=== PATIENT | female | born 1935 | race Caucasian/White ===

== ENCOUNTER → 2017-05-12 | Outpatient (CLI) | payer OTHER, BC ==
[~2017-05-12] VITALS: Ht 160 cm; Wt 66.2 kg
[~2017-05-12] MED LIST: ABILIFY 5 MG TAB5 M1 PO; ACETAMINOPHEN325 M1; ACETAMINOPHEN325 M1 PO; ACIDOPHILUS1 EAC3; ACIDOPHILUS1 EAC3 PO; ADULT LOW DOSE81 MG PO; ADVAIR 100-501 EACH INH; ADVAIR 500-501 EACH; ADVAIR 500-501 EACH IH; ADVAIR 500-501 EACH INH; ADVAIR 500-501 EACH PO; ADVAIR HFA115 MCG/21 INH; ADVAIRDISKUS; ALBUTEROL INH; ALBUTEROL2.5 MG/0.1 IH; ALBUTEROL2.5 MG/31; ALBUTEROL2.5 MG/32 IH; ALDACTONE50 MG PO; AMBEREN; AMBIEN 5 MG TABL5 M1 PO; AMOXICILLIN 50500 M1 PO; AMOXICILLIN 50500 MG; ARTIFICIAL TEAR15 M1 OPHTHALMIC; ASPERCREME 1141.7 GM TOP; ASPERCREME 1141.7 GM TP; ASPIRIN EC325 M1 PO; ASPIRIN EC81 M1 PO; ASPIRIN325; ASPIRIN81 M2 PO; ATIVAN0.5 MG PO; AUGMENTIN 875875 MG PO; AZITHROMYCIN 2250 MG PO; BENADRYL ALLE12.5 MG PO; BENADRYL ALLERG25 MG PO; BENADRYL25 MG PO; BICARSIM80 MG; BICARSIM80 MG PO; BISAC-EVAC10 MG RECTAL; BISACODYL SUPP10 MG; BUDEPRION SR100 MG PO; BUDEPRION SR150 MG PO; BUPROPION HCL100 MG PO; BUPROPION XL150 MG PO; CALCIUM; CALCIUM 500 +1 EAC5; CALCIUM 500 +1 EAC6; CALCIUM 600 +1 EAC1 PO; CALCIUM 600 +1 EAC9 PO; CARVEDILOL3.125 MG PO; CARVEDILOL6.25 MG PO; CEFTIN 250 MG250 MG PO; CELEXA10 MG PO; CEPHALEXIN 500500 M3 PO; CIPROFLOXACIN500 M1 PO; CIPROFLOXACIN500 M3; CITRUCEL500 MG PO; COLACE 100 MG100 MG PO; COLACE100 MG; COLACE100 MG PO; COREG CR20 MG PO; COREG PO; COUMADIN; COUMADIN 10MG T10 M1; COUMADIN 10MG T10 M1 PO; COUMADIN 2 MG TA2 M1 PO; COUMADIN 4 MG TA4 M1 PO; COUMADIN PO; COUMADIN7.5 MG; DESYREL; DESYREL50 MG PO; DIOVAN160 MG; DIOVAN160 MG PO; DUCOLAX PO; DUONEB 2.5-0.5 M3 ML INH; EFFEXOR XR150 MG PO; EFFEXOR100 MG; EFFEXOR100 MG PO; ENOXAPARIN80 MG/0.8 SC; EYE DROP15 ML OPHTHALMIC; FERRO-TIME325 MG PO; FERROUS GLUCON325 M4; FERROUS SULFAT325 M1; FERROUS SULFAT325 M1 PO; FLEET ENEMA118 ML; FLONASE 0.05%50 MCG NASAL; FOSAMAX 70 MG T70 M1; FOSAMAX 70 MG T70 M1 PO; FOSAMAX 70 MG T70 MG PO; FUROSEMIDE 20 M20 M1 PO; FUROSEMIDE 40 M40 M1 PO; GLUCAGEN1 M2 SUBQ; GLYCOLAX POWDER17 G1 PO; GLYCOLAX17 GM; GLYCOLAX255 GM PO; IBUPROFEN 600600 M1 PO; IMDUR 30 MG TAB30 M1; IMDUR 30 MG TAB30 M1 PO; IMODIUM ADVANC1 EAC1; IMODIUM ADVANC1 EAC1 PO; IRON325 PO; ISOSORBIDE DINI30 MG; JANTOVEN7.5 MG PO; K-DUR 20 MEQ T20 MEQ; K-DUR 20 MEQ T20 MEQ PO; LASIX 20 MG TAB20 MG; LASIX 20 MG TAB20 MG PO; LASIX 40 MG TAB40 M1; LASIX 40 MG TAB40 M1 PO; LASIX 40 MG TAB40 M2 PO; LEVAQUIN 250 M250 MG PO; LEVOTHROID PO; LEVOTHYROXINE0.05 MG; LEVOXYL75 MCG PO; LOPERAMIDE 2 MG2 M1; LOPERAMIDE 2 MG2 M1 PO; LOVASTAT20; LOVASTAT20 PO; LOVASTAT40 PO; LOVASTATIN PO; LOW DOSE ASPIRI81 M1; MELATONIN3 MG PO; METAMUCIL0.52 GM PO; MEVACOR40 MG PO; MIRALAX255 GM; MIRALAX255 GM PO; MOM; MOM PO; MONTELUKAST SOD10 MG PO; MUCINEX TA600 MG/TA1 PO; MUCINEX TA600 MG/TAB; MUCINEX600 MG PO; MULTIVITAMINS; MULTIVITAMINS PO; NEPHROCAPS SOFT1 CAP; NEPHROCAPS SOFT1 CAP PO; NEXIUM40 MG; NITROQUICK0.4 MG SL; NITROSTAT0.4 M1 SL; NITROSTAT0.4 MG SL; NORVASC 5 MG TAB5 MG; NORVASC 5 MG TAB5 MG PO; NORVASC10 MG PO; OCEAN45 ML NASAL; OCTREOTIDE100 MCG/3 SC; OMEPRAZOLE PO; OMEPRAZOLE20 M2 PO; OMEPRAZOLE20 MG; OMEPRAZOLE40 MG PO; OPTIVE EYE DROP30 ML INTRAOCULR; OS-CAL 500+D C1 EACH PO; OXCARBAZEPINE600 MG; OXYBUTYNIN 5 MG5 M1 PO; OXYGEN 2L/NC; OXYGEN PRN; PHENERGAN 25 MG25 M1 PO; POTASSIUM20; POTASSIUM20 PO; PREDNISONE 10 M10 MG PO; PRILOSEC 20 MG20 MG; PRILOSEC 20 MG20 MG PO; PROAIR HFA8.5 GM; PROAIR HFA8.5 GM IH; PROAIR HFA8.5 GM INH; PROTONIX40 M2 PO; PROVENTIL; PROVENTIL HFA6.7 G1 IH; PROVENTIL HFA6.7 G1 INH; PROVENTIL INH; REFRESH5 ML INTRAOCULR; RENAL SOFTGEL1 MG; ROBITUSSIN COU118 M1 PO; SALINE NASAL SPRAY; SEE COMMENTS; SENNA S TABLET1 EACH PO; SENNA SYRU8.8 MG/5 M PO; SEROQUEL 25 MG25 MG PO; SIMETHICON CHEW80 M1 PO; SLOW MAG 64 MG; SLOW-MAG64 MG PO; SPIRIVA; SPIRIVA IH; SPIRIVA INH; SPIRONOLACTONE50 MG PO; STERILE SALINE126 ML NASAL; SYNTHROID50 MCG; SYNTHROID50 MCG PO; SYNTHROID75 MCG PO; TESSALON PERLE100 MG; TESSALON PERLE100 MG PO; TIROSINT75 MCG PO; TOPAMAX25 M1 PO; TRAMADOL 50 MG50 MG; TRAMADOL 50 MG50 MG PO; TRAZODONE HCL50 MG PO; TRILEPTAL 300300 MG; TRILEPTAL 300300 MG PO; TRILEPTAL600 MG; TRILEPTAL600 MG PO; ULTRAM 50MG TAB50 MG; ULTRAM 50MG TAB50 MG PO; VALIUM2 MG; VISINE15 ML; VITAMIN C + RO500 MG PO; VITAMIN C120 GM; VITAMIN D1000 UNI1 PO; VITAMINC500 PO; WELLBUTRIN 100100 MG PO; WELLBUTRIN SR150 MG PO; WELLBUTRIN XL150 M1; WELLBUTRIN XL150 M1 PO; XENADERM OINTME30 GM; XENADERM OINTME30 GM TOP; XENADERM OINTME30 GM TP; XOPENEX0.63 MG/3 IH; ZINC CHELATE50 MG; ZPAK PO; [UNRECOGNIZED DRUG - OTHER] TOP
[2017-05-12 14:21] VITALS: BP 130/71
== END ==
LOC: SEN 12:12
DX: Z01.818 Encounter for other preprocedural examination (principal); N39.0 Urinary tract infection, site not specified; H26.8 Other specified cataract; L57.0 Actinic keratosis; J44.9 Chronic obstructive pulmonary disease, unspecified; I13.0 Hypertensive heart and chronic kidney disease with heart failure and stage 1 through stage 4 chronic kidney disease, or unspecified chronic kidney disease; I50.30 Unspecified diastolic (congestive) heart failure; N18.3 Chronic kidney disease, stage 3 (moderate); G47.33 Obstructive sleep apnea (adult) (pediatric); E03.9 Hypothyroidism, unspecified; F32.9 Major depressive disorder, single episode, unspecified; F41.9 Anxiety disorder, unspecified; I48.91 Unspecified atrial fibrillation; Z98.890 Other specified postprocedural states

== ENCOUNTER 2018-02-17 15:37 | Emergency (ER) | payer OTHER, BC ==
[~2018-02-17] VITALS: Ht 160 cm; Wt 71.2 kg
[2018-02-17] MEDS ORDERED: TRIPLE ANTIBI28.4 G2 TOP (17:21)
[2018-02-17 17:30] VITALS: BP 131/54
== END 2018-02-17 17:30 | disposition home or self-care (01) ==
LOC: ER 15:37
DX: S51.811A Laceration without foreign body of right forearm, initial encounter (principal); S00.03XA Contusion of scalp, initial encounter; G25.81 Restless legs syndrome; I48.91 Unspecified atrial fibrillation; J44.9 Chronic obstructive pulmonary disease, unspecified; I13.0 Hypertensive heart and chronic kidney disease with heart failure and stage 1 through stage 4 chronic kidney disease, or unspecified chronic kidney disease; I50.30 Unspecified diastolic (congestive) heart failure; N18.3 Chronic kidney disease, stage 3 (moderate); G47.30 Sleep apnea, unspecified; E03.9 Hypothyroidism, unspecified; F32.9 Major depressive disorder, single episode, unspecified; F41.9 Anxiety disorder, unspecified; Z90.12 Acquired absence of left breast and nipple; Z85.3 Personal history of malignant neoplasm of breast; Z86.2 Personal history of diseases of the blood and blood-forming organs and certain disorders involving the immune mechanism; Z87.891 Personal history of nicotine dependence; Z88.5 Allergy status to narcotic agent; Z88.8 Allergy status to other drugs, medicaments and biological substances; W18.39XA Other fall on same level, initial encounter; Y92.89 Other specified places as the place of occurrence of the external cause; Y93.89 Activity, other specified; Y99.8 Other external cause status

== ENCOUNTER → 2018-05-02 | Outpatient (CLI) | payer OTHER, BC ==
[~2018-05-02] MED LIST changes: +TRIPLE ANTIBI28.4 G2 TOP
== END ==
LOC: RAD 09:53
DX: I51.7 Cardiomegaly (principal); R09.89 Other specified symptoms and signs involving the circulatory and respiratory systems; Z98.890 Other specified postprocedural states

== ENCOUNTER → 2018-05-20 | Outpatient (CLI) | payer OTHER, BC ==
--- NOTE | 2018-05-21 21:19 | SLE ---
[facility] [place] [address] [address] POLYSOMNOGRAPHY STUDY Name: ROSEMARIE LANGFORD Room #: [facility]#: [id number] Admission: 05/20/18 ������������������ Attend Phys: Vinicius Pedroza MD Discharge: ������������������ Date of : 35 Report #: [id number] THIS REPORT FOR: //name// CC: Vinicius Barraza Raiza Zhang Layton MD DATE OF SERVICE: 05/20/2018 ATTENDING PHYSICIAN: Zhang Layton MD INDICATIONS: The patient is 83 years old who weighs 162 pounds and 62 inches tall with a BMI of 29.6. The patient's [place] score was not available. The patient underwent diagnostic sleep study at [facility]. DESCRIPTION: During the night study, the patient spent 407 minutes in bed and slept for 284 minutes with a low sleep efficiency of 70%. Sleep latency was prolonged at 110 minutes with a REM latency, which was absent due to lack of REM sleep. Overall, sleep architecture showed increased stage 1 and stage 2 sleep, absent N3 and REM sleep. During the night study, the patient had 2 apneas which were central. No obstructive or mixed apneas and 67 hypopneas. The patient's apnea-hypopnea index was 14.6 per hour. REM sleep was not observed. The patient's supine AHI was 14.6 per hour as well. EKG monitoring revealed average heart rate of 74 beats per minute. PVCs were observed, but no sustained arrhythmias observed. Maximum heart rate was 85 beats per minute. PLMS were seen at an index of 89 per hour and 16.9 per hour caused EEG arousals. Nocturnal oximetry study revealed average oxygen saturation of 90% with a lowest of 78%. 145 minutes were spent at an oxygen saturation of less than 89%. The patient did meet the criteria for CPAP initiation, but it was late in the night. As a result, CPAP could not be initiated. IMPRESSION: 1. Mild sleep apnea-hypopnea syndrome at an AHI of 14.6 per hour. Absence of REM sleep can underestimate the severity of sleep apnea. 2. Moderate nocturnal hypoxia secondary to combination of obstructive sleep apnea and suspected obesity hypoventilation syndrome. 3. Severe periodic limb movements during sleep. 4. Reduced sleep efficiency resulting from sleep onset and sleep maintenance insomnia. [facility] [address] [place] [address] POLYSOMNOGRAPHY STUDY Name: PRIMITIVOROSEMARIE M Room #: [facility]#: [id number] Admission: 05/20/18 ������������������ Attend Phys: Vinicius Pedroza MD Discharge: ������������������ Date of : 35 Report #: [id number] RECOMMENDATIONS: 1. If the patient is clinically symptomatic or has co-morbid conditions, then she should be treated with either oral appliance or a trial of CPAP titration. 2. Weight loss was strongly advised. 3. Avoid AUTOMOTIVE INSTRUCTOR depressants. 4. Cautioned regarding driving until the patient's hypersomnia is resolved with the above recommendations. 6. PLMS should also be further evaluated for symptoms of restless legs during the day and if present, can be treated with dopaminergic agonist agents. 7. The patient's insomnia should also be further evaluated and treated according to the etiology. 8. The patient does use home oxygen at nighttime. However, the study was performed on room air. If the patient does not undergo CPAP titration, then she should continue to use oxygen at night. ��������������������������������������������� <ELECTRONICALLY SIGNED> ���������������������������������������� By: Vinicius Pedroza MD ��������������������������������������������� 05/21/189 180 14 Vinicius Pedroza MD /nt
== END ==
LOC: SLEEPLAB 10:10
DX: G47.33 Obstructive sleep apnea (adult) (pediatric) (principal); G47.34 Idiopathic sleep related nonobstructive alveolar hypoventilation

== ENCOUNTER → 2018-06-03 | Outpatient (CLI) | payer OTHER, BC ==
--- NOTE | 2018-06-06 20:01 | SLE ---
[facility] [place] [place] [address] POLYSOMNOGRAPHY STUDY Name: ROSEMARIE LANGFORD Room #: REG [facility]#: [id number] Admission: 06/03/18 ������������������ Attend Phys: Vinicius Pedroza MD Discharge: ������������������ Date of : 35 Report #: [id number] THIS REPORT FOR: //name// CC: Vinicius Layton DATE OF SERVICE: 06/03/2018 ATTENDING PHYSICIAN: Dr. Zhang Layton. The patient is 83 years old who weighs 162 pounds with a BMI of 29.6. The patient had a previous sleep study and it showed obstructive sleep apnea at an AHI of 14.6 per hour. REM sleep was not observed. The patient was also noted to have moderate nocturnal hypoxia and severe PLMs along with reduced sleep efficiency. The patient returned to the sleep lab for CPAP titration study. During the night study, the patient spent 413 minutes in bed and slept for 285 minutes with a low sleep efficiency of 69%. Sleep latency was 26.3 minutes with absent REM sleep. Overall, sleep architecture showed increased stage 1 and stage 2 sleep, absent N3 sleep and absent REM sleep. EKG monitoring revealed an average heart rate of 64 beats per minute. No sustained arrhythmias observed. PLMs were seen at an index of 143 per hour and 21.6 per hour caused EEG arousals. The patient was started on CPAP at 7 cm water and titrated up to 15 cm water. At the final pressure, the patient slept for 35.7 minutes. The patient had supine sleep throughout. No REM sleep was observed. The patient's AHI was reduced to 3.4 per hour and oxygen saturations remained above 90% with one spot desaturation of 87%. IMPRESSION: 1. Severe sleep apnea diagnosed by previous sleep study. 2. Severe periodic limb movements. RECOMMENDATIONS: 1. CPAP at 15 cm water completely eliminated the patient's sleep apnea and should be used on a nightly basis. 2. Follow up in 4-6 weeks to assess compliance and to document clinical improvement. 3. Weight loss is advised. [facility] [address] [place] [address] POLYSOMNOGRAPHY STUDY Name: ROSEMARIE LANGFORD Room #: REG [facility]#: [id number] Admission: 06/03/18 ������������������ Attend Phys: Vinicius Pedroza MD Discharge: ������������������ Date of : 35 Report #: [id number] 4. Avoid INSOLVENCY PRACTITIONER depressants. 5. Cautioned regarding driving until symptoms of sleep apnea resolves with the use of CPAP. 6. The patient should also be further evaluated for symptoms of restless legs during the day and if present, it can be treated with dopaminergic agonist agents. ��������������������������������������������� <ELECTRONICALLY SIGNED> ���������������������������������������� By: Vinicius Pedroza MD ��������������������������������������������� 06/06/182000 1906 1924 Vinicius Pedroza MD /nt
== END ==
LOC: SLEEPLAB 11:51
DX: G47.30 Sleep apnea, unspecified (principal); G47.61 Periodic limb movement disorder

== ENCOUNTER → 2018-07-13 | Outpatient (CLI) | payer OTHER, BC | LOC: SEN 14:14 | DX: D64.89 Other specified anemias (principal); R10.9 Unspecified abdominal pain ==

== ENCOUNTER → 2018-08-02 | Outpatient (CLI) | payer OTHER, BC ==
[2018-08-02 09:05] LABS: HEMATOCRIT 35.3 % (37.0-47.0); HEMOGLOBIN 11.8 gm/dL (12.0-15.0); MCH 29.5 pg (26.0-34.0); MCHC 33.4 g/dL (28.0-37.0); MCV 88.3 fL (80.0-100.0); RDW 15.5 % (10.5-14.5); WBC 6.5 thou/uL (4.0-11.0)
[2018-08-02 09:17] LABS: CALCIUM 9.3 mg/dL (8.5-10.1); CREATININE 1.4 mg/dL (0.6-1.0); POTASSIUM 4.5 mmol/L (3.5-5.1)
[2018-08-02 09:25] LABS: ALBUMIN 3.3 g/dL (3.4-5.0); TOTAL BILIRUBIN 0.5 mg/dL (<0.1-1.0); TOTAL PROTEIN 6.7 g/dL (6.4-8.2)
== END ==
LOC: CAT 08:22
PROVIDERS: Emergency Medicine
DX: I71.4 Abdominal aortic aneurysm, without rupture (principal); K43.9 Ventral hernia without obstruction or gangrene; N30.20 Other chronic cystitis without hematuria; N28.1 Cyst of kidney, acquired; Z90.5 Acquired absence of kidney; Z90.12 Acquired absence of left breast and nipple; Z85.528 Personal history of other malignant neoplasm of kidney; Z92.21 Personal history of antineoplastic chemotherapy; Z79.899 Other long term (current) drug therapy

== ENCOUNTER → 2018-08-24 | Outpatient (CLI) | payer OTHER, BC ==
[~2018-08-24] MED LIST changes: +CEFUROXIME250 MG PO; +IBUPROFEN 400400 M2 PO
== END ==
LOC: SEN 13:03
DX: I71.4 Abdominal aortic aneurysm, without rupture (principal); N30.20 Other chronic cystitis without hematuria; N28.89 Other specified disorders of kidney and ureter

== ENCOUNTER 2018-09-15 13:08 | Inpatient (IN) | payer OTHER, BC ==
[~2018-09-15] VITALS: Ht 160 cm; Wt 72.3 kg
[~2018-09-15 13:08] MED LIST changes: -CEFUROXIME250 MG PO; -IBUPROFEN 400400 M2 PO
[2018-09-15 13:10] VITALS: BP 154/53
[2018-09-15 14:52] LABS: URINE BILIRUBIN NEGATIVE (Negative); URINE BLOOD TRACE (Negative); URINE CLARITY CLEAR; URINE COLOR YELLOW; URINE GLUCOSE-RANDOM* NEGATIVE (Negative); URINE KETONES NEGATIVE (Negative); URINE PROTEIN (DIPSTICK) NEGATIVE (Negative); URINE UROBILINOGEN 0.2 E.U./dl (0.2-1.0)
[2018-09-15 14:53] LABS: URINE LEUKOCYTES-REFLEX 3+ (Negative); URINE NITRITE-REFLEX POSITIVE (Negative)
[2018-09-15 15:04] LABS: BACTERIA-REFLEX None Seen /HPF (None Seen); CASTS None Seen /LPF (None Seen); CRYSTALS None Seen /LPF (None Seen); SQUAMOUS 0-3 Few /LPF (0-3); URINE RBC 0-2 Rare /HPF (0-2); URINE WBC-REFLEX >25 Many /HPF (0-5); WBC CLUMPS Few (None Seen)
[2018-09-15 15:16] LABS: ABSOLUTE NEUTROPHILS 7.4 thou/uL (1.4-8.2); BASOPHILS 0.6 % (0.0-2.0); EOSINOPHILS 2.9 % (0.0-3.0); HEMATOCRIT 36.3 % (37.0-47.0); HEMOGLOBIN 12.4 gm/dL (12.0-15.0); LYMPHOCYTES 10.6 % (24.0-44.0); MCH 29.9 pg (26.0-34.0); MCV 87.7 fL (80.0-100.0); MONOCYTES 9.4 % (1.0-8.0); PLATELET COUNT 268 thou/uL (150-400); POLYS 76.5 % (36.0-66.0); RBC 4.14 mil/uL (4.20-5.00); WBC 9.7 thou/uL (4.0-11.0)
[2018-09-15 15:26] LABS: CALCIUM 9.8 mg/dL (8.5-10.1); CREATININE 1.3 mg/dL (0.6-1.0); POTASSIUM 4.7 mmol/L (3.5-5.1)
--- NOTE | 2018-09-15 15:30 | NUR ---
Pt's sister remains constantly at besdide and answers questions on behalf of pt. Pt's sister asking at this time for specific lab values and comparing the stated results to research she has done on her phone. All questions answered at this time.
[2018-09-15 15:31] LABS: ALBUMIN 3.2 g/dL (3.4-5.0); TOTAL BILIRUBIN 0.4 mg/dL (<0.1-1.0); TOTAL PROTEIN 7.5 g/dL (6.4-8.2)
[2018-09-15 17:08] VITALS: BP 162/81
[2018-09-15 17:51] LABS: FOLIC ACID 17.5 ng/mL (8.6-58.9); TSH 3.522 uIU/mL (0.358-3.740)
[2018-09-15 17:59] VITALS: BP 162/81
[2018-09-15 18:37] VITALS: BP 146/71
--- NOTE | 2018-09-15 19:52 | NUR ---
ARRIVED TO FLOOR FROM ER VIA CART. AMBULATED FROM CART TO BED WITH USE OF WALKER. PATIENT VERY UNSTEADY AND WEAK. FALL PRECAUTIONS STARTED WITH BED ALARM ON, SIDE RAILS UP X 4. FALL RISK ARM BAND APPLIED. YELLOW SOCKS ON. ADMISSION HISTORY COMPLETED BY SHANTA SHARPE. REPORT GIVEN TO SHANTA RAMIREZ.
--- NOTE | 2018-09-16 04:44 | NUR ---
PATIENT ALERT AND ORIENTED X2-4. 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 FALL PRODUCED BRUISING TO RIGHT EYE AND A STIFF RIGHT ARM. VERY [place] AND HAS BILATERAL HEARING AIDES AT HER BEDSIDE. MEDICATED WITH TRAMADOL 50MG X1 AT TIME OF NOTE. UP TO BS WITH ONE ASSIST. LIMB ALERT FOR LEFT MASTECTOMY. WILL WORK WITH PT/OT. PASSING GAS, HOWEVER, NO BM DURING THE NIGHT. ABRASIONS FROM FALL. PATIENT REFUSED TO GET BACK IN THE BED AFTER USING THE BSC AND WAS PLACED IN HER CARLOS CHAIR. RESTING QUIETLY.
[2018-09-16 04:58] VITALS: BP 161/63
[2018-09-16 08:00] VITALS: BP 148/67
[2018-09-16 15:00] VITALS: BP 128/47
--- NOTE | 2018-09-16 18:35 | NUR ---
Assumed pt care this am, pt has been on the recliner for most of the days and has stated that is where she sleeps and not on the bed. FAll precautions set in place. Pt worked with pt was able to ambulate with a gait belt and a walker. Pain was only partially relieved with tramadol, pain would get worse when there is movement. Nausea was noted and releived with medication. 2L O2 was requested for comfort care, this is what she uses at home especially at night. Main concern is for her rotator cuff. Informed MD, ortho consult has been called out. POC followed.
[2018-09-16 19:21] VITALS: BP 162/50
[2018-09-17 03:49] VITALS: BP 125/50
--- NOTE | 2018-09-17 04:33 | NUR ---
Pt. rested quietly at intervals during the night when checked on during frequent rounds. She c/o pain to her right upper extremity and po pain meds given (see emar) with some relief noted. Pt. prefers to sit up in recliner chair all shift. Chair alarm is on.
[2018-09-17 07:35] VITALS: BP 140/59
--- NOTE | 2018-09-17 12:38 | NUR ---
RD was consulted for difficulty eating. Pt was admitted for fall. UTI; R Shoulder Injury/pain; extracranial HE. Pt denies signficant wt loss. Meds reviewed. Pt albumin= 3.2, GFR 39. Pt resides in SNF. Pt reports decreased appetite past 2 weeks d/t UTI. Pt reports improvements in appetite d/t UTI resolving. Pt reports today being first day appetite returned. Pt fell and is unable to use right hand to eat. Pt requested finger foods. RD called diet office and requested finger foods to be sent. RD will continue to monitor and FU PRN.
[2018-09-17 14:20] VITALS: BP 138/54
--- NOTE | 2018-09-17 17:42 | NUR ---
PT VITAL SIGNS STABLE THROUGHOUT SHIFRT. PT WENT FOR CT SCAN WHICH SHE TOLERATED WELL. TRANSFERRED FROM [facility] TO WHEELCHAIR AND BACK SAFELY. NO NEW SKIN ISSUES. PAIN ADDRESSED WITH MEDICATION SUCCESSFULLY. PT USED 2 L'S OF O2 SPARINGLY FOR COMFORT. FALL PRECAUSTIONS IN PLACE, FAMILY AT BEDSIDE.
[2018-09-17 20:20] VITALS: BP 150/55
[2018-09-18 05:10] VITALS: BP 157/53
--- NOTE | 2018-09-18 05:56 | NUR ---
ASSUMED CARE OF PT AT 1900HRS. PT IS AOX4 AND CALLS FOR HELP NEEDED. PT SPENT ENTIRE SHIFT ON THE RECLINER AND WAS ABLE TO GET SOME SLEEP. PT USED BEDSIDE COMMODE SEVERAL TIMES THIS SHIFT. NO OTHER S/S OF ACUTE DISTRESS. WILL CONTINUE TO MONITOR.
[2018-09-18 08:00] VITALS: BP 145/50
--- NOTE | 2018-09-18 09:47 | EKG ---
[place] [address] [facility] [place] [address] ELECTROCARDIOGRAM REPORT Name: ROSEMARIE LANGFORD Room #: 460-P ADM IN M.R.#: [id number] ������������������ Admission: 09/15/18 ������������������ Attend Phys: Keysha Stoner Discharge: ������������������ Date of : 35 Report #: [id number] ����������������������������������������������������������������� [id number] THIS REPORT FOR: //name// [facility] ED Test Date: 2018-09-15 Test Time: 13:45:08 Pat Name: ROSEMARIE LANGFORD Department: Room: [facility] Gender: F Champion Of Sustainable Design: WG : 1935 Requested By: Tesha Gleason Order Number: [id number] MD: Devon Pat Measurements Intervals [place] Rate: 65 P: -71 IA: 66 QRS: -74 QRSD: 172 T: 11 QT: 445 QTc: 463 Interpretive Statements Sinus or ectopic atrial rhythm Short IA interval Right bundle branch block Left ventricular hypertrophy Anterolateral infarct, age indeterminate Baseline wander in lead(s) V6 No previous ECG available for comparison Electronically Signed On 09-18-2018 9:47:22 CDT by Devon Pat [email or web address] ��������������������������������������������� <ELECTRONICALLY SIGNED> ���������������������������������������� By: Devon Pat MD, [facility] WITH [facility] ��������������������������������������������� 09/18/18 0947 1345 1345 Devon Pat MD, [facility] /EPI
[2018-09-18] MEDS ORDERED: CEFUROXIME250 MG PO (13:57)
--- NOTE | 2018-09-18 14:40 | NUR ---
Discharge Planning: dp faxed referral to 3 facilities...[facility], [facility] and [facility]. Patient to possibly dc today. Dp will follow up with facilities to make sure they received faxes.
--- NOTE | 2018-09-18 15:04 | NUR ---
PT ADMITTED RELATED TO FALL, UTI; R SHOULDER INJURY/PAIN; EXTRACRANIAL HEMATOMA. CM REVIEWED CHART AND SPOKE WITH CARE TEAM. CM MET WITH PT AND HER SISTER AT BEDSIDE THIS DAY. PT IS A&O X4. CM ROLE INTRODUCED. PT INDICATED SHE LIVES ON [place] [facility]. PT INDICATED SHE HAD USED A 4WW AND A CPAP AT THE FACILITY TERMITE EXTERMINATOR HELPER. PT INDICATED SHE HAD PT AND OT AT THE FACILITY OFF AND ON IN THE PAST. PT AND SISTER INDICATED THEY WERE INTERESTED IN PT GOING TO A POST ACUTE CARE STAY UPON DC. THEY ASKED THAT REFERRALS BE SENT TO [facility], [facility], AND [facility]. CM TO FOLLOW INDICATED WITH DC PLANNING.
[2018-09-18] MEDS ORDERED: IBUPROFEN 400400 M2 PO (16:21)
[2018-09-18 16:34] VITALS: BP 153/53
== END 2018-09-18 18:00 | DRG 563 ==
LOC: ER 13:08 → EROBS 16:08 → 4W 16:08
PROVIDERS: Physician Assistant; ADMIT Hospitalist
DX: S46.011A Strain of muscle(s) and tendon(s) of the rotator cuff of right shoulder, initial encounter (principal); N39.0 Urinary tract infection, site not specified; I50.32 Chronic diastolic (congestive) heart failure; I13.0 Hypertensive heart and chronic kidney disease with heart failure and stage 1 through stage 4 chronic kidney disease, or unspecified chronic kidney disease; N18.4 Chronic kidney disease, stage 4 (severe); S09.90XA Unspecified injury of head, initial encounter; R29.6 Repeated falls; J44.9 Chronic obstructive pulmonary disease, unspecified; I48.0 Paroxysmal atrial fibrillation; E03.9 Hypothyroidism, unspecified; F32.9 Major depressive disorder, single episode, unspecified; F41.9 Anxiety disorder, unspecified; G25.81 Restless legs syndrome; H54.7 Unspecified visual loss; W18.39XA Other fall on same level, initial encounter; F03.90 Unspecified dementia, unspecified severity, without behavioral disturbance, psychotic disturbance, mood disturbance, and anxiety; S61.512A Laceration without foreign body of left wrist, initial encounter; S51.011A Laceration without foreign body of right elbow, initial encounter; E78.5 Hyperlipidemia, unspecified; K21.9 Gastro-esophageal reflux disease without esophagitis; R32 Unspecified urinary incontinence; M19.90 Unspecified osteoarthritis, unspecified site; Z95.2 Presence of prosthetic heart valve; Z90.12 Acquired absence of left breast and nipple; Z85.3 Personal history of malignant neoplasm of breast; Z79.82 Long term (current) use of aspirin; Z79.899 Other long term (current) drug therapy; Z88.6 Allergy status to analgesic agent; Z88.8 Allergy status to other drugs, medicaments and biological substances; Z87.891 Personal history of nicotine dependence; Y93.89 Activity, other specified; Y92.89 Other specified places as the place of occurrence of the external cause; Y99.8 Other external cause status
CPT/HCPCS: 10045

== ENCOUNTER → 2020-06-09 | Outpatient (CLI) | payer OTHER, BC ==
[~2020-06-09] MED LIST changes: +CEFUROXIME250 MG PO; +IBUPROFEN 400400 M2 PO
== END ==
LOC: RAD 15:24
PROVIDERS: ATTEND Internal Medicine Pulmonary Disease
DX: J44.9 Chronic obstructive pulmonary disease, unspecified (principal); R06.00 Dyspnea, unspecified

== ENCOUNTER 2020-12-29 15:36 | Inpatient (IN) | payer OTHER, BC ==
[~2020-12-29] VITALS: Ht 152.4 cm; Wt 58.1 kg
--- NOTE | ~2020-12-29 | EMS ---
[facility] [address] [place] [address] EMS Patient Care Report Name: ROSEMARIE LANGFORD Room #: 205-P [facility] IN M.R.#: [id number] Admission: 12/29/20 Attend Phys: Keysha Stoner Discharge: 12/31/20 Date of : 35 Report #: [id number] THIS REPORT FOR: //name// Report Transmitted: 01/01/2021 06:25 EMS Care Summary [place], [place]/[facility] Incident [id number] @ 12/29/2020 14:48 Incident Location [address] Patient ROSEMARIE LANGFORD Female, 85 Years 1935 Patient Address [address] [place] [address] Patient History Congestive Heart Failure (CHF),Chronic Obstructive Pulmonary Disease (COPD),Hyperlipidemia,Gastro-Esophageal Reflux Disease (GERD),Anxiety Disorder (Panic Attacks),Depression,Anemia,Hypothyroidism,Sleep Apnea,Coronary Artery Disease (CAD), Patient Allergies Morphine,Vicodin,Other drug allergy, Patient Medications Aspirin, Famotidine, Colace, Guaifenesin, Spiriva, Amoxicillin, Levothyroxine, Melatonin, Miralax, Seroquel, DuoNeb, Flonase, Carvedilol, Duloxetine, Alprazolam, Zyprexa, Potassium, Lovastatin, Nystatin, Abilify, Amlodipine, Protonix, Furosemide, Chief Complaint CHEST PAIN Disposition Transported No Lights/[place] Dispatch Reason Chest Pain (Non-Traumatic) Transported To [facility] [address] [place] [address] EMS Patient Care Report Name: ROSEMARIE LANGFORD Room #: 205-P DIS IN M.R.#: [id number] Admission: 12/29/20 Attend Phys: Keysha Stoner Discharge: 12/31/20 Date of : 35 Report #: [id number] Narrative Called for CP. Upon arrival, pt was KERN x 3 sitting in a chair with O2 in place @ 4 lpm. Staff reported pt c/o CP and SOB. The pt received NTG x 1 seating captain and her CP went down from 10 to a 7 but her BP dropped from the 120s to the 80s. Pt RA SaO2 was in the upper 80s and went to the mid 90s with 4 lpm. Pt only wears O2 at night. Pt moved to the EMS cot and loaded into the ambulance w/o incident. Vitals obtained. [address] elevation. Baby ASA x 4 PO. 20g IV SL to R Hand, d-stick obtained. En route: NS ran w/o. 12 Lead repeated, no changes. Pt still c/o chest tightness. Vitals repeated. RR to [facility] ER. Arrived: pt taken to ER #12 and moved to their bed w/o incident. Pt care & report to ER staff. Initial Vitals @15:12P: 134, @15:21P: 63,SpO2: 100, @15:10P: 39, @15:21BP: 103/34, @15:11P: 61, @15:27P: 65,BP: 96/42,SpO2: 93, @15:08P: 63,R: 16,BP: 96/37,Pain: 8/10,GCS: 15,Revised Trauma: 12, @15:17P: 62,R: 16,BP: 97/41,Pain: 6/10,Glucose: 144, Assessments @14:57MENTAL:Person Oriented,Event Oriented,Time Oriented,Place Oriented,SKIN:HEENT:LUNG SOUNDS:ABDOMEN:PELVIS//GI:EXTREMITIES:Left Arm: No Abnormalities,Right Arm: No Abnormalities,Left Leg: No Abnormalities,Right Leg: No Abnormalities,PULSE:NEURO:No Abnormalities, Impression Chest Pain / Discomfort Procedures @14:57ALS AssessmentResponse: UnchangedSucceeded@15:083-Lead ECGResponse: UnchangedSucceeded@15:12Saline Lock 8cc (20 ga) Site: Hand-RightResponse: UnchangedSucceeded@15:12Aspirin - 324 Milligrams (mg) - OralResponse: Unchanged@PTANitrostat - 0.4 Milligrams (mg) - SublingualResponse: Unchanged@15:2112-Lead ECGResponse: UnchangedSucceeded@15:1112-Lead ECGResponse: UnchangedSucceeded@15:10Saline Lock cc (20 ga) Site: Forearm-RightResponse: UnchangedFailed@15:03StretcherResponse: Unchanged Timeline PETROLEUM ENGINEER,Nitrostat - 0.4 Milligrams (mg) - Sublingual,Response: Unchanged 14:46,Call Received 14:46,Dispatch Notified 14:48,Dispatched [facility] [address] [place] [address] EMS Patient Care Report Name: ROSEMARIE LANGFORD Room #: 205-P DIS IN M.R.#: [id number] Admission: 12/29/20 Attend Phys: Reynoldmelia Gonzales Herbie Discharge: 12/31/20 Date of : 35 Report #: [id number] 14:50,En Route 14:56,On Scene 14:57,At Patient 14:57,ALS Assessment,Response: UnchangedSucceeded, 15:03,Stretcher,Response: Unchanged 15:08,3-Lead ECG,Response: UnchangedSucceeded, 15:08,BP: 96/37 M,PULSE: 63,RR: 16 R,SPO2: Ox,ETCO2: ,BG: ,PAIN: 8,GCS: 15, 15:10,Saline Lock cc 20 ga Site: Forearm-Right,Response: UnchangedFailed, 15:10,BP: / M,PULSE: 39,RR: R,SPO2: Ox,ETCO2: ,BG: ,PAIN: ,GCS: , 15:11,12-Lead ECG,Response: UnchangedSucceeded, 15:11,BP: / M,PULSE: 61,RR: R,SPO2: Ox,ETCO2: ,BG: ,PAIN: ,GCS: , 15:12,BP: / M,PULSE: 134,RR: R,SPO2: Ox,ETCO2: ,BG: ,PAIN: ,GCS: , 15:12,Saline Lock 8cc 20 ga Site: Hand-Right,Response: UnchangedSucceeded, 15:12,Aspirin - 324 Milligrams (mg) - Oral,Response: Unchanged 15:17,Depart Scene 15:17,BP: 97/41 M,PULSE: 62,RR: 16 R,SPO2: Ox,ETCO2: ,B,PAIN: 6,GCS: , 15:21,12-Lead ECG,Response: UnchangedSucceeded, 15:21,BP: / M,PULSE: 63,RR: R,SPO2: 100 Ox,ETCO2: ,BG: ,PAIN: ,GCS: , 15:21,BP: 103/34 M,PULSE: ,RR: R,SPO2: Ox,ETCO2: ,BG: ,PAIN: ,GCS: , 15:27,BP: 96/42 M,PULSE: 65,RR: R,SPO2: 93 Ox,ETCO2: ,BG: ,PAIN: ,GCS: , 15:30,At Destination 15:53,Call Closed Disclaimer v1.1 Copyright 2020 [employer] This EMS Care Summary contains data elements from the applicable legal record (which may be displayed differently). It is designed to provide pertinent information for the following purposes: continuity of care, clinical quality, and state data reporting. The complete legal record is available to ED staff and administrators of the receiving hospital in [employer] Patient Tracker. All data is provided "as is."
[2020-12-29 15:36] VITALS: BP 110/38
[2020-12-29 15:52] LABS: ABSOLUTE NEUTROPHILS 2.8 thou/uL (1.4-8.2); BASOPHILS 0.7 % (0.0-2.0); EOSINOPHILS 7.6 % (0.0-3.0); HEMATOCRIT 24.7 % (37.0-47.0); LYMPHOCYTES 26.4 % (24.0-44.0); MCH 28.2 pg (26.0-34.0); MCHC 32.2 g/dL (28.0-37.0); MCV 87.7 fL (80.0-100.0); MONOCYTES 13.2 % (1.0-8.0); PLATELET COUNT 251 thou/uL (150-400); POLYS 52.1 % (36.0-66.0); RBC 2.82 mil/uL (4.20-5.00); RDW 17.2 % (10.5-14.5); WBC 5.3 thou/uL (4.0-11.0)
[2020-12-29 16:02] LABS: CALCIUM 7.1 mg/dL (8.5-10.1); CREATININE 0.9 mg/dL (0.6-1.0); POTASSIUM 3.7 mmol/L (3.5-5.1)
[2020-12-29 16:13] LABS: TOTAL BILIRUBIN 0.4 mg/dL (0.2-1.0); TOTAL PROTEIN 5.2 g/dL (6.4-8.2)
[2020-12-29 17:21] LABS: % SATURATION 32 % (20-39); IRON 70 ug/dL (50-170); TIBC 219 ug/dL (250-450)
[2020-12-29 19:02] LABS: FOLIC ACID 17.5 ng/mL (8.6-58.9)
[2020-12-30 00:27] VITALS: BP 122/37
[2020-12-30] MEDS ORDERED: LEVOTHYROXINE100 MCG PO (00:30)
[2020-12-30] MEDS ORDERED: FUROSEMIDE 20 M20 M1 PO (00:30)
[2020-12-30 00:33] VITALS: BP 122/37
[2020-12-30 01:06] VITALS: BP 108/54
[2020-12-30 04:08] VITALS: BP 127/51
[2020-12-30 04:47] LABS: CALCIUM 8.4 mg/dL (8.5-10.1); CREATININE 1.3 mg/dL (0.6-1.0)
[2020-12-30 04:52] LABS: HEMATOCRIT 23.5 % (37.0-47.0); HEMOGLOBIN 7.9 gm/dL (12.0-15.0); MCH 29.2 pg (26.0-34.0); MCHC 33.6 g/dL (28.0-37.0); RBC 2.7 mil/uL (4.20-5.00); RDW 17.2 % (10.5-14.5); WBC 3.9 thou/uL (4.0-11.0)
[2020-12-30 04:57] LABS: ALBUMIN 2.5 g/dL (3.4-5.0); PHOSPHORUS 4.2 mg/dL (2.5-4.9)
[2020-12-30 05:12] LABS: CHOLESTEROL 97 mg/dL (<200); HDL CHOLESTEROL 39 mg/dL (>40); LDL CHOLESTEROL 41 mg/dL (<100); TC:HDL 2.5 Ratio (Not establshd); TRIGLYCERIDE 85 mg/dL (<150); VLDL 17 mg/dL (<40)
[2020-12-30 05:27] LABS: POTASSIUM 4.7 mmol/L (3.5-5.1)
[2020-12-30 05:30] LABS: SERUM ASSESSMENT Clear
--- NOTE | 2020-12-30 07:09 | EKG ---
[address] [address] ELECTROCARDIOGRAM REPORT Name: ROSEMARIE LANGFORD Room #: 205- ADM IN M.R.#: [id number] Admission: 12/29/20 Attend Phys: Keysha Stoner Discharge: Date of : 35 Report #: [id number] [facility] ED Test Date: 2020-12-29 Test Time: 15:35:22 Pat Name: ROSEMARIE LANGFORD Department: Room: 205 Gender: F Conveyor Monitor: ANDERSON : 1935 Requested By: Redd Villasenor Order Number: [id number] MD: Danny Lees Measurements Intervals [place] Rate: 65 P: -43 OK: 195 QRS: 25 QRSD: 140 T: 32 QT: 478 QTc: 498 Interpretive Statements Sinus rhythm Probable left atrial enlargement Right bundle branch block Left ventricular hypertrophy Compared to ECG 09/15/2018 13:45:08 Ectopic atrial rhythm no longer present Short OK interval no longer present Myocardial infarct finding no longer present Electronically Signed On 12-30-2020 7:09:43 CDT by Danny Lees [email or web address] <ELECTRONICALLY SIGNED> By: Danny Lees MD, FACC 12/30/20 0709 1535 1535 Danny Lees MD, FAC /EPI
--- NOTE | 2020-12-30 10:52 | NUR ---
BAR MANAGER CALLED FOR DECREASED LOC/UNRESPONSIVE TO STIMULI. SEE FLOWSHEET FOR DETAILS.
[2020-12-30 11:05] LABS: BE(vivo) 5.8 mmol/L (-2 to +3); HCO3 31.4 mmol/L (22.0-26.0); PCO2 51.7 mmHg (35.0-45.0); PO2 84.7 mmHg (80.0-100.0); pH 7.401 (7.360-7.450); sO2 96.2 % (92.0-98.0)
[2020-12-30 11:45] VITALS: BP 114/52
--- NOTE | 2020-12-30 13:21 | 2DMMODE ---
[facility] [place] [address] 2 D/M-MODE ECHOCARDIOGRAM Name: ROSEMARIE LANGFORD Room #: 205-P ADM IN M.R.#: [id number] Admission: 12/29/20 Attend Phys: Keysha Stoner Discharge: Date of : 35 Report #: [id number] THIS REPORT FOR: cc: Karlene Middleton Kathryn C. DO Lundgren, Craig H. MD [facility] ~ APPROVED REPORT Study performed: 12/30/2020 10:54:59 EXAM: Comprehensive 2D, Doppler, and color-flow Echocardiogram Patient Location: Bedside Room #: 205 Status: routine BSA: 1.54 HR: 73 bpm BP: 127/51 mmHg Rhythm: NSR Other Information Study Quality: Technically Difficult Technically limited study due to inability to position patient, lung disease, significant valve shadowing. Indications COPD Dyspnea Chest Pain Hypertension/HDD MVR, AVR 2D Dimensions IVSd: 12.63 (7-11mm) LVOT Diam: 20.19 (18-24mm) LVDd: 38.47 mm PWd: 13.17 (7-11mm) Ascending Ao: 26.40 (22-36mm) LVDs: 26.43 (25-40mm) Left Atrium: 40.13 (27-40mm) Aortic Root: 26.41 mm IVC: 16.00 mm Aortic Valve AoV Peak Leonel.: 1.81 m/s AO Peak Gr.: 13.[address] [facility] [address] [place] [address] 2 D/M-MODE ECHOCARDIOGRAM Name: PRIMITIVOROSEMARIE Hardy Room #: 205-P [facility] IN ..#: [id number] Admission: 12/29/20 Attend Phys: Keysha Bae Discharge: Date of : 35 Report #: [id number] MV Peak Gr.: 15.54 mmHg MV Mean Gr.: 6.45 mmHg MV Max Leonel.: 1.97 m/s MV Mean Leonel.: 1.17 m/s MV VTI: 495.67 mm MV PHT: 56.96 ms MVA (PHT): 3.86 cm2 Pulmonary Valve PV Peak Leonel.: 1.54 m/s PV Peak Gr.: 9.47 mmHg Tricuspid Valve TR Peak Leonel.: 3.00 m/s TR Peak Gr.: 36.05 mmHg PA Pressure: 41.00 mmHg Left Ventricle The left ventricle is normal size. There is normal LV segmental wall motion. Mild concentric left ventricular hypertrophy. Left ventricular systolic function is hyperdynamic. LVEF is 65-70%. This study is not technically sufficient to allow evaluation of the LV diastolic function. Right Ventricle The right ventricle is normal size. The right ventricular systolic function is normal. Atria Left atrium is dilated. Right atrium is dilated. Aortic Valve Bioprosthetic aortic valve replacement Trace aortic regurgitation. There is no aortic valvular stenosis. Mitral Valve Prosthetic mitral valve is present, normal prosthetic mitral valve gradients (peak gradient 15, mean gradient 6 mm) Mild mitral regurgitation. No evidence of mitral valve stenosis. Tricuspid Valve The tricuspid valve is normal in structure. There is mild tricuspid regurgitation. Estimated PAP 40 mmHg. There is moderate pulmonary hypertension. Pulmonic Valve The pulmonary valve is normal in structure. There is no pulmonic [facility] [address] [place] [address] 2 D/M-MODE ECHOCARDIOGRAM Name: ROSEMARIE LANGFORD Hardy Room #: 205-P [facility] IN M.R.#: [id number] Admission: 12/29/20 Attend Phys: Keysha Bae Discharge: Date of : 35 Report #: [id number] valvular regurgitation. Great Vessels The aortic root is normal in size. IVC is normal in size and collapses >50% with inspiration. Pericardium There is no pericardial effusion. <Conclusion> Left ventricular systolic function is hyperdynamic. There is normal LV segmental wall motion. LVEF is 65-70%. Both atria are dilated. Bioprosthetic aortic valve replacement. Trace aortic regurgitation, no stenosis. Prosthetic mitral valve is present (Agudelo II #25), normal prosthetic mitral valve gradients (peak gradient 15, mean gradient 6 mm) Mild mitral regurgitation. There is mild tricuspid regurgitation. Estimated pulmonary artery pressure of 40 mmHg. There is no pericardial effusion. <ELECTRONICALLY SIGNED> By: Devon Pat MD, [facility] 12/30/20 132 20 20 Devon Pat MD, FAC /INF
--- NOTE | 2020-12-30 15:33 | EKG ---
[address] [place] [address] ELECTROCARDIOGRAM REPORT Name: ROSEMARIE LANGFORD Room #: 205- ADM IN M.R.#: [id number] Admission: 12/29/20 Attend Phys: Keysha Stoner Discharge: Date of : 35 Report #: [id number] [facility] Test Date: 2020-12-30 Test Time: 10:51:30 Pat Name: ROSEMARIE LANGFORD Department: Room: 205 P Gender: F Signal Operator Linguist: KEENAN : 1935 Requested By: Keysha Stoner Order Number: [id number] MD: Danny Lees Measurements Intervals [place] Rate: 79 P: -69 CT: 208 QRS: -54 QRSD: 145 T: 8 QT: 426 QTc: 489 Interpretive Statements Sinus or ectopic atrial rhythm RBBB Probable left ventricular hypertrophy Compared to ECG 12/29/2020 15:35:22 Ectopic atrial rhythm now present Electronically Signed On 12-30-2020 15:33:14 CDT by Danny Lees [email or web address] <ELECTRONICALLY SIGNED> By: Danny Lees MD, [facility] 12/30/20 1533 50 50 Danny Lees MD, [facility] /EPI
--- NOTE | 2020-12-30 16:48 | NUR ---
PATIENT'S NURSING FACILITY WAS CALLED BY THIS RN TO OBTAIN INFORMATION REGARDING RECENT ADMISSION AT [facility]. PER ER MD NOTE PATIENT WAS RECENTLY DISAGNOSED WITH SEIZURE DISORDER. RECORDS OBTAINED FROM NURSE FACILITY WITH NO MENTION OF SEIZURE OR SEIZURE MEDICATION. ORDER PLACED FOR RECORDS TO BE FAXED FROM [facility].
--- NOTE | 2020-12-30 18:28 | NUR ---
Patient alert x3 this morning, ate breakfast, participated in [facility]. At 1050 wind turbine blade repair technician entered room and found patient unresponsive, sister also at bedside. Patient breathing and had a strong pulse. Patient unarousable by sternal rub. Rapid response called overhead. Patient unarousable for less than one minute, spontaneously awakened. Physicians at bedside. Vital signs stable, blood sugar stable. ABG ordered, unremarkable. I discussed with Dr. Stoner at bedside that per the ER note in chart patient was recently diagnosed with seizures and discharged on medication. No further orders per MD, continue to monitor. In the mean time, seizure precautions initiated after rapid response this morning and maintained throughout shift. See other note for information regarding history and medication information requests. This evening patient's sister returned to bedside. She was surprised and visibly upset when I had told her that the nursing facility had no record of seizure medication given or prescribed post discharge from [facility]. I let her know that records have been requested from [facility]. Stephanie (patient's sister) stated she will bring the discharge paperwork she has in her possession and will also reach out to nursing facility. Stephanie requested to have Dr. Stoner give her an update over the phone tomorrow when he rounds.
[2020-12-30 20:15] VITALS: BP 135/44
--- NOTE | 2020-12-31 03:57 | NUR ---
RECEIVED THIS PATIENT AT 0100AM.PATIENT IS ALERT AND ORIENTED TO SELF, SOMETIMES FORGETFUL AND CONFUSED.ON NASAL CANNULA AT 2LPM, SATURATING WELL.NOT IN PAIN OR DISTRESS.FALL PREVENTION MEASURES MAINTAINES.SEIZURE PREACAUTION OBSERVED.ALL NEEDS ATTENDED.
[2020-12-31 04:30] VITALS: BP 119/47
[2020-12-31 08:41] LABS: HEMATOCRIT 26.2 % (37.0-47.0); HEMOGLOBIN 8.5 gm/dL (12.0-15.0); MCH 28.5 pg (26.0-34.0); MCHC 32.6 g/dL (28.0-37.0); MCV 87.4 fL (80.0-100.0); RBC 2.99 mil/uL (4.20-5.00); RDW 17.3 % (10.5-14.5); WBC 4.4 thou/uL (4.0-11.0)
[2020-12-31 08:52] VITALS: BP 130/50
[2020-12-31 09:04] LABS: ALBUMIN 2.8 g/dL (3.4-5.0); CALCIUM 9.3 mg/dL (8.5-10.1); CREATININE 1.3 mg/dL (0.6-1.0); PHOSPHORUS 4.3 mg/dL (2.5-4.9); POTASSIUM 4.3 mmol/L (3.5-5.1)
[2020-12-31 11:30] VITALS: BP 117/52
[2020-12-31 11:57] LABS: INR 1.06; PROTIME 11.5 Seconds (10.5-12.1)
--- NOTE | 2020-12-31 14:03 | NUR ---
Pt is from ltc at [facility]. She states she has lived there for several years. Her sister Stephanie is at bedside this afternoon and both are in agreement with dc back to the facility today. Armament Repairer has confirmed with Landy the POWER SYSTEMS ENGINEER at [facility] and they can accept her back today. They can not provide transport. [facility] van vouched per [facility] for 4-4:30pm transport. Pt, sister, and facility updated along with the care team. Chart copy in progress. Dc orders and updated faxed and confirmed with Landy. Nursing to call report; hopefully their phones will be back online later this afternoon as they have been having service issues this morning.
--- NOTE | 2020-12-31 17:43 | NUR ---
PT DISCARGED TO FACIALTY VIA WHEELCHAIR VAN.
== END 2020-12-31 17:43 | DRG 205 ==
LOC: ER 15:36 → 2N 17:03 → EROBS 17:03 → 2N 12-30 00:45
PROVIDERS: Emergency Medicine; Internal Medicine; Nurse Practitioner; ADMIT Hospitalist; ATTEND Hospitalist
DX: M94.0 Chondrocostal junction syndrome [Tietze] (principal); E43 Unspecified severe protein-calorie malnutrition; I13.0 Hypertensive heart and chronic kidney disease with heart failure and stage 1 through stage 4 chronic kidney disease, or unspecified chronic kidney disease; I50.32 Chronic diastolic (congestive) heart failure; R26.9 Unspecified abnormalities of gait and mobility; G25.81 Restless legs syndrome; H91.93 Unspecified hearing loss, bilateral; H54.7 Unspecified visual loss; R53.81 Other malaise; R53.1 Weakness; I25.10 Atherosclerotic heart disease of native coronary artery without angina pectoris; R55 Syncope and collapse; R56.9 Unspecified convulsions; J44.9 Chronic obstructive pulmonary disease, unspecified; G47.33 Obstructive sleep apnea (adult) (pediatric); I50.9 Heart failure, unspecified; I48.0 Paroxysmal atrial fibrillation; M27.2 Inflammatory conditions of jaws; N18.30 Chronic kidney disease, stage 3 unspecified; E03.9 Hypothyroidism, unspecified; I45.10 Unspecified right bundle-branch block; K21.9 Gastro-esophageal reflux disease without esophagitis; E78.5 Hyperlipidemia, unspecified; F41.9 Anxiety disorder, unspecified; F32.A Depression, unspecified; Z20.822 Contact with and (suspected) exposure to COVID-19; Z95.4 Presence of other heart-valve replacement; Z86.14 Personal history of Methicillin resistant Staphylococcus aureus infection; Z85.3 Personal history of malignant neoplasm of breast; Z90.12 Acquired absence of left breast and nipple; Z79.899 Other long term (current) drug therapy; Z79.82 Long term (current) use of aspirin; Z88.5 Allergy status to narcotic agent; Z88.8 Allergy status to other drugs, medicaments and biological substances; Z87.891 Personal history of nicotine dependence; Z68.25 Body mass index [BMI] 25.0-25.9, adult; Z99.81 Dependence on supplemental oxygen
CPT/HCPCS: 10081